=== PATIENT | female | born 1990 | race African-American/Black ===

== ENCOUNTER 2017-06-11 07:08 | Emergency (ER) | payer OTHER ==
[2017-06-11 08:16] LABS: HIV (1/2) Antibody/Antigen Non-Reactive (NonReactive); HIV 1/2 INDEX 0.13 S/CO (<1.00); Hep C IgG Ab Non-Reactive (NonReactive); Hep C Index 0.09 S/CO (0-0.79)
[2017-06-11 09:56] LABS: Hep B Surf AB Reactive (NonReactive)
[2017-06-11 10:00] LABS: HBSAB Concentration 56.93 mIU/mL
== END 2017-06-11 08:05 | disposition home or self-care (01) ==
LOC: ERS 07:08
DX: Z77.21 Contact with and (suspected) exposure to potentially hazardous body fluids (principal); J45.909 Unspecified asthma, uncomplicated; F41.9 Anxiety disorder, unspecified; Z79.899 Other long term (current) drug therapy
CPT/HCPCS: 36415; 86706; 86803; 87389; 99283

== ENCOUNTER 2017-06-14 10:56 | Emergency (ER) | payer OTHER | END 2017-06-14 13:02 | disposition home or self-care (01) | LOC: ERS 10:56 | DX: H60.11 Cellulitis of right external ear (principal); J45.909 Unspecified asthma, uncomplicated; F41.9 Anxiety disorder, unspecified | CPT/HCPCS: 99282 ==

== ENCOUNTER 2017-06-27 07:39 | Outpatient (CLI) | payer OTHER ==
--- NOTE | 2017-06-27 09:49 | ULT ---
ULTRASOUND ABDOMEN: HISTORY: Epigastric pain. COMPARISON: Gallbladder ultrasound 07/25/16. FINDINGS: Visualized portions of the aorta and IVC are unremarkable. Pancreas is not well seen. The hepatic echotexture appears unremarkable. The liver measures 15.8 cm in length. The portal vein is patent with antegrade flow. The common bile duct measures 4 mm. The gallbladder wall thickness is 2 mm. The right kidney measures 9.3 x 4 x 4.2 cm without mass, hydronephrosis, or abnormal calcifications. The left kidney measures 9.2 x 5.2 x 5.3 cm without mass, hydronephrosis, or abnormal calcifications . The spleen measures 8.5 x 3.4 x 3.1 cm. No cholelithiasis appreciated. Sonographic Pierre's sign negative. IMPRESSION: Unremarkable exam. POS: TPC
== END 2017-06-27 07:40 | disposition home or self-care (01) ==
LOC: ULT 07:39
PROVIDERS: ATTEND Family Medicine
DX: R10.13 Epigastric pain (principal)
CPT/HCPCS: 76700

== ENCOUNTER 2017-10-13 12:05 | Day surgery (SDC) | payer OTHER ==
[2017-10-12 15:38] VITALS: BMI 42.0
[~2017-10-13 12:05] MED LIST: Lidocaine 1% PF 5 ML VIAL ONE; PROPOFOL 200 MG/20 ML VIAL ONE
[2017-10-13 13:08] LABS: BHCG - Serum Negative (NEGATIVE); Pregs Control Background? CLEAR/WHITE (CLR/WHITE); Pregs Control Bar Appear? YES (CONTROL BAR)
--- NOTE | 2017-10-13 16:25 | OP ---
DATE OF PROCEDURE: 10/13/2017 TITLE OF PROCEDURE: Esophagogastroduodenoscopy with biopsy. PRE-PROCEDURE DIAGNOSES: 1. Intractable upper abdominal pain. 2. History of Helicobacter pylori infection, treated with resolution of infection. POSTOPERATIVE DIAGNOSES: 1. Examination to second portion of duodenum. 2. 1-2 scattered erosions at the GE junction, biopsied. 3. No evidence of erosive esophagitis or esophageal ulcer. 4. Mild patchy erythema of the gastric body and antrum, biopsied. 5. Grossly normal appearing duodenum, biopsied for histology. ANESTHESIA: Total intravenous anesthesia provided by Dr. Joe Thomas. PROCEDURE IN DETAIL: Written informed consent was obtained. The patient was brought to the endoscop y suite. Total intravenous anesthesia was provided. The patient was placed in the left lateral decu bitus position. A bite block was inserted into the mouth. A Pentax video therapeutic gastroscope wa s introduced into the oral cavity and the esophagus was carefully intubated. The gastroscope was adv anced under direct visualization to the second portion of the duodenum. Endoscopic findings revealed the Z-line at approximately 38 cm from the incisors. It was mildly irregular. A few small erosions not more than 2-3 mm in size were noted at the GE junction. Biopsies were obtained for histology. There was no evidence of erosive esophagitis or esophageal ulcer. No hiatal hernia was seen. The st omach was then entered and carefully examined. This included a retroflexed view of the cardia and fu ndus. Mild patchy erythema was noted in the gastric body and antrum and biopsies were obtained for h istology. No ulcer was seen. The duodenum from the bulb to the second portion was then examined and no ulcer or duodenitis was seen. Biopsies were obtained in the first and second portion of the duod enum for histology. The stomach was then decompressed as the endoscope was completely removed from t he patient. There were no immediate complications. She was transferred to the day-stay surgery area for post-procedure monitoring. RECOMMENDATIONS: 1. Await biopsy results. 2. Ask the patient to call me in 1 week for biopsy results. 3. Obtain gastric emptying scan in nuclear medicine in the next 1-2 weeks. 4. Follow up in the GI clinic on 11/03/2017. 5. We will initiate a trial of low-dose amitriptyline 10 mg p.o. at bedtime for the next 3-4 weeks.
== END 2017-10-13 14:16 | disposition home or self-care (01) ==
LOC: SDC 12:05
PROVIDERS: ATTEND Internal Medicine Gastroenterology
PROC: 0DB98ZX Excision of Duodenum, Via Natural or Artificial Opening Endoscopic, Diagnostic (ICD-10-PCS; principal; 2017-10-13)
PROC: 0DB78ZX Excision of Stomach, Pylorus, Via Natural or Artificial Opening Endoscopic, Diagnostic (ICD-10-PCS; principal; 2017-10-13)
PROC: 0DB48ZX Excision of Esophagogastric Junction, Via Natural or Artificial Opening Endoscopic, Diagnostic (ICD-10-PCS; principal; 2017-10-13)
DX: K31.9 Disease of stomach and duodenum, unspecified (principal); K20.9 Esophagitis, unspecified; K21.9 Gastro-esophageal reflux disease without esophagitis; E03.9 Hypothyroidism, unspecified; K58.9 Irritable bowel syndrome, unspecified; Z88.1 Allergy status to other antibiotic agents; Z79.899 Other long term (current) drug therapy
CPT/HCPCS: 36415; 84703; 88305; 88312; 88313; J2001; J2704

== ENCOUNTER 2017-11-22 03:35 | Emergency (ER) | payer OTHER ==
[2017-11-22 04:28] LABS: Anion Gap 14 mmol/L (10-20); BUN (Urea Nitrogen) 6 mg/dL (7.0-18.7); Calc. Creatinine Clearance 0 mL/min (70-130); Calcium 8.8 mg/dL (7.8-10.44); Carbon Dioxide 19 mmol/L (22-29); Chloride 108 mmol/L (98-107); Estimated GFR-MDRD Greater than 90; Glucose 104 mg/dL (70-105); Potassium 4.1 mmol/L (3.5-5.1); Sodium 137 mmol/L (136-145)
[2017-11-22 04:31] LABS: Band 1 % (5-11); Eosinophils 5 % (0-10); Hemoglobin 11.9 g/dL (12.0-16.0); Lymphocytes 48 % (21-51); MDiff Complete? YES; Mean Corpuscular HGB CONC 32.1 g/dL (32.0-36.0); Mean Corpuscular Hemoglobin 26.5 pg (27.0-31.0); Mean Corpuscular Volume 82.5 fL (78.0-98.0); Mean Platelet Volume 9.4 fL (7.4-10.4); Monocytes 6 % (0-10); Neutrophil 39 % (42-75); Platelet Count 214 thou/uL (130-400); RBC Distribution Width 12.6 % (11.5-14.5); Red Blood Cell (RBC) Count 4.48 mill/uL (4.20-5.40); White Blood Cell (WBC) Count 7.5 thou/uL (4.8-10.8)
[2017-11-22 04:33] LABS: Bilirubin Negative (Negative); Blood, Urine Moderate (Negative); Clarity Slightly Cloudy (Clear); Glucose, Urine (Dipstick) Negative (Negative); Leukocyte Negative (Negative); Nitrite Negative (Negative); Protein, Urine (Dipstick) 30 mg/dL (Neg-Trace); pH, Urine 5.5 (5.0-9.0)
[2017-11-22 04:35] LABS: Specific Gravity, Urine 1.027 (1.002-1.036)
[2017-11-22 04:44] LABS: Bacteria/HPF 3+ HPF (None Seen); RBC/HPF 0-3 HPF (0-3)
[2017-11-22 04:45] LABS: Hyaline Casts/LPF NONE SEEN LPF (0-3 Hyaline)
[2017-11-22 04:46] LABS: Sperm/HPF Rare HPF (None Seen)
--- NOTE | 2017-11-22 10:42 | ULT ---
PRELIMINARY REPORT/[facility]/EMERGENTY AFTER-HOURS PROCEDURE US First Trimester, Transabdominal US , Transvaginal CLINICAL HISTORY: 27 years old, female; Pain and signs and symptoms; Lmp or gestational age (in weeks): 7w1d; Antepartu m complications; Bleeding and other: N/v; complicated by abdominal or pelvic pain; Lower; F irst trimester; ; Patient HX: Vaginal spotting TECHNIQUE: Real-time transabdominal and transvaginal obstetrical ultrasound of the maternal pelvis and a first t rimester with image documentation. Transvaginal imaging was used for better evaluation of t he fetus and adnexa. COMPARISON: No relevant prior studies available. FINDINGS: Gestation: [place]-rump length measuring 6 mm corresponding to 6 weeks and 4 days gestation. hear t rate of 135 beats per minutes. Yolk sac measuring 4 mm. Gestational age by ultrasound is 7 weeks an d 1 day with an EDC of 07/10/2018. Clinical gestational age is 6 weeks and 5 days with an EDC of 07/13/2018. Small crow-gestational hemorrhage present. Placenta/amniotic fluid: Cannot be adequately evaluated due to the early gestational age. Uterus/cervix: Uterus measuring 8.7 x 4.7 x 6.7 cm. No myometrial mass. Ovaries: Left ovary measuring 2.4 x 2.9 x 2.7 cm. No mass. Free fluid: No free fluid. Other findings: LMP: 10/06/2017. Right ovary not visualized. IMPRESSION: 1. Single living intrauterine at 7 weeks and 1 day gestational age and EDC of 07/10/2018 by ultrasound. 2. Small crow-gestational hemorrhage. Thank you for allowing us to participate in the care of your patient. Dictated and Authenticated by: Frank Schultz MD 11/22/2017 6:00 AM Central Time ([place] & [place]) FINAL REPORT EMERGENT AFTER HOURS PELVIC ULTRASOUND: Technique: Multiplanar grayscale and color doppler images were obtained. FINDINGS/IMPRESSION: In the technique of the preliminary report it states that transvaginal imaging was performed. This wa s not performed. Spectral analysis of the doppler waveforms of the ovaries were performed. I agree with the findings and impression given in the preliminary report per [facility] physician. There is a gestational sac within the uterus containing a pole with crown-rump length of 0.67 cm. This equals 6 weeks 4 days. A heart rate was detected and yolk sac was identified. There is a small hypoechoic region adjacent to the gestational sac which may represent a small subchorionic hemorrhage . IMPRESSION: 1. Small subchorionic hemorrhage. 2. Single live intrauterine with estimated age of 6 weeks 4 days. 3. Please note that transvaginal imaging was not used on this examination. POS: OFF
[2017-11-22 20:17] LABS: Chlamydia by PCR Not Detected (NotDetected); GC by PCR Not Detected (NotDetected)
== END 2017-11-22 06:28 | disposition home or self-care (01) ==
LOC: SCSER 03:35
DX: O20.0 Threatened abortion (principal); O99.511 Diseases of the respiratory system complicating pregnancy, first trimester; J45.909 Unspecified asthma, uncomplicated; O99.611 Diseases of the digestive system complicating pregnancy, first trimester; K21.9 Gastro-esophageal reflux disease without esophagitis; K58.9 Irritable bowel syndrome, unspecified; O99.341 Other mental disorders complicating pregnancy, first trimester; F32.9 Major depressive disorder, single episode, unspecified; F41.9 Anxiety disorder, unspecified; Z79.899 Other long term (current) drug therapy; Z3A.01 Less than 8 weeks gestation of pregnancy
CPT/HCPCS: 76856; 80048; 81003; 81015; 84702; 85025; 86900; 86901; 87480; 87491; 87510; 87591; 87660; 93976

== ENCOUNTER 2018-04-25 21:34 | Day surgery (SDC) | payer OTHER ==
[2018-04-25 22:00] VITALS: BP 135/81; TEMP 98.4; BMI 43.5
[2018-04-25 22:41] LABS: #Basophils 0.1 thou/uL (0.0-0.2); #Eosinphils 0.4 thou/uL (0.0-0.7); #Lymphocytes 2.5 thou/uL (1.20-3.40); #Monocytes 0.9 thou/uL (0.11-0.59); #Neutrophils 8.6 thou/uL (1.40-6.50); %Basophils 0.5 % (0.0-1.0); %Lymphocytes 20.5 % (21.0-51.0); %Monocytes 7.2 % (0.0-10.0); %Neutrophils 68.9 % (42.0-75.0); Hemoglobin 11.7 g/dL (12.0-16.0); Mean Corpuscular HGB CONC 32.9 g/dL (32.0-36.0); Mean Corpuscular Hemoglobin 28.5 pg (27.0-31.0); Mean Corpuscular Volume 86.6 fL (78.0-98.0); Mean Platelet Volume 7.7 fL (7.4-10.4); Platelet Count 207 thou/uL (130-400); RBC Distribution Width 12.8 % (11.5-14.5); Red Blood Cell (RBC) Count 4.11 mill/uL (4.20-5.40); White Blood Cell (WBC) Count 12.4 thou/uL (4.8-10.8)
[2018-04-25 23:01] LABS: ALT (SGPT) 12 U/L (8-55); AST (SGOT) 12 U/L (5-34); Albumin 3.4 g/dL (3.5-5.0); Alkaline Phosphatase 69 U/L (40-150); Anion Gap 13 mmol/L (10-20); BUN (Urea Nitrogen) 5 mg/dL (7.0-18.7); Bilirubin, Total 0.5 mg/dL (0.2-1.2); Calc. Creatinine Clearance 202 mL/min (70-130); Calcium 8.9 mg/dL (7.8-10.44); Carbon Dioxide 19 mmol/L (22-29); Chloride 108 mmol/L (98-107); Estimated GFR-MDRD Greater than 90; Globulin 3.2 g/dL (2.4-3.5); Glucose 72 mg/dL (70-105); Potassium 3.6 mmol/L (3.5-5.1); Protein, Total 6.6 g/dL (6.0-8.3); Sodium 136 mmol/L (136-145)
[2018-04-25 23:10] LABS: Bilirubin Negative (Negative); Blood, Urine Negative (Negative); Clarity CLEAR (Clear); Glucose, Urine (Dipstick) Negative (Negative); Leukocyte Negative (Negative); Nitrite Negative (Negative); Protein, Urine (Dipstick) Negative (Neg-Trace); Specific Gravity, Urine 1.011 (1.002-1.036); Urobilinogen 0.2 mg/dL (0.2-1.0); pH, Urine 6.5 (5.0-9.0)
[2018-04-26 00:24] LABS: FFN Internal QC Analyzer PASS (PASS); FFN Internal QC Cassette PASS (PASS); Fetal Fibronectin Negative (Negative)
[2018-04-26] MEDS ORDERED: Zolpidem Tartrate 5 MG TAB PO PRN (00:57)
[2018-04-26] MEDS ORDERED: Lactated Ringer's 1,000 ML IV SCH ×2 (01:00)
--- NOTE | 2018-04-26 11:25 | PRG ---
DATE OF SERVICE: 04/26/2018 PRIMARY OB: Savannah Llamas MD CHIEF COMPLAINT: Abdominal pain and cough. HISTORY OF PRESENT ILLNESS: The patient is a 28-year-old G1, P0 female with an intrauterine at 28 weeks and 6 days, who presented yesterday with abdominal pain and upper respiratory infection including cough. After being evaluated by Dr. Hogan, the on-call [employer] hospitalist, the patient was noted to have negative fibronectin and no evidence of urinary tract infection, and a closed cervix with no evidence of labor. The patient was IV hydrated and treated overnight with plans for her primary OB, Dr. Savannah Llamas, to see her in the morning and continue management. Unfortunately, Dr. Llamas became tied up with surgery, as I was asked to followup on her evaluation. The patient reports that she has been having pain since yesterday morning in her abdomen, worse with activity and movement, but also report that it feels like menstrual cramps. The patient also reports she has had a cough for 2 or 3 days and upper respiratory infection since last Tuesday. She works as a CCU nurse here at the hospital. The patient reports that she is comfortable discharging home, as there is no evidence of labor or infection at this time or urinary tract infection at this time. The patient reports that she was scheduled to go into work this morning at 7 o'clock. OBJECTIVE: VITAL SIGNS: Most recent blood pressure 135/81, heart rate of 82, saturating 100% on room air. ABDOMEN: Gravid and soft. She does have some tenderness to the lower abdomen and pelvis with deviation of the uterus. heart tracing shows the fetus is baseline in the 150s with moderate long-term variability, positive acceleration, no deceleration, and no evidence of contractions on the monitor. ASSESSMENT AND PLAN: This patient is being discharged to home. There is no evidence of labor. Her fetus has a category 1 tracing. She will be discharged with Tylenol No. 3 #10 for cough and abdominal pain and a work excuse for today and tomorrow, as she does work with already sick patients and with her excessive cough, it would not be a good idea for her continue to work at this time. She has also been given instructions to follow with her primary OB Dr. Savannah Llamas, with a phone call today to make an ER followup appointment. Job ID: [id number]
== END 2018-04-26 09:30 | disposition home or self-care (01) ==
LOC: L&D/OP 21:34
PROVIDERS: ATTEND Obstetrics & Gynecology
DX: O99.89 Other specified diseases and conditions complicating pregnancy, childbirth and the puerperium (principal); R10.9 Unspecified abdominal pain; Z3A.28 28 weeks gestation of pregnancy
CPT/HCPCS: 36415; 80053; 81003; 82731; 85025; 96360; 96361; 99283

== ENCOUNTER 2018-07-06 20:53 | Inpatient (IN) | payer OTHER ==
[2018-07-06] MEDS ORDERED: NS w/ Oxytocin 10 units 500 ML IV SCH (20:56)
[2018-07-06] MEDS ORDERED: Lidocaine 1% (PF) 30 ML VIAL SC PRN (20:56)
[2018-07-06] MEDS ORDERED: Acetaminophen 500 MG TAB PO PRN (20:56)
[2018-07-06] MEDS ORDERED: Ondansetron PF 4 MG/2 ML Vial IVP PRN (20:56)
[2018-07-06] MEDS ORDERED: Docusate 100 MG CAP PO PRN (20:56)
[2018-07-06] MEDS ORDERED: NS / Oxytocin 40 units/1000ml 1,000 ML IV PRN (20:56)
[2018-07-06] MEDS ORDERED: Promethazine HCl 25 MG/ML VIAL IM PRN (20:56)
[2018-07-06] MEDS ORDERED: Zolpidem Tartrate 5 MG TAB PO PRN (20:56)
[2018-07-06] MEDS ORDERED: Ibuprofen 800 MG TAB PO PRN (20:56)
[2018-07-06] MEDS ORDERED: Butorphanol Tartrate 1 MG/ML VIAL SLOW IVP PRN (20:56)
[2018-07-06] MEDS ORDERED: Misoprostol 200 MCG TAB PR PRN (20:56)
[2018-07-06] MEDS ORDERED: HYDROcodone/Acetaminophen 5/325 mg Tablet PO PRN ×2 (20:56)
[2018-07-06] MEDS ORDERED: Penicillin G Potassium 5 MILL.UNITS in Sodium Chloride 0.9% 100 ML IVPB SCH (21:00)
[2018-07-06 21:33] VITALS: BMI 45.1
[2018-07-06] MEDS: Lactated Ringer's 1,000 ML IV SCH (22:00)
[2018-07-06] MEDS: Misoprostol 100 MCG TAB VAG SCH (22:15)
[2018-07-06 22:45] LABS: Mean Corpuscular HGB CONC 32.8 g/dL (32.0-36.0); Mean Corpuscular Hemoglobin 28.4 pg (27.0-31.0); Mean Corpuscular Volume 86.6 fL (78.0-98.0); Mean Platelet Volume 8.7 fL (7.4-10.4); Platelet Count 212 thou/uL (130-400); RBC Distribution Width 13.2 % (11.5-14.5); Red Blood Cell (RBC) Count 4.22 mill/uL (4.20-5.40); White Blood Cell (WBC) Count 8.9 thou/uL (4.8-10.8)
[2018-07-06 23:20] LABS: HBSAg Index 0.16 S/CO (0-0.99); Hep B Surf Ag Non-Reactive S/CO (NonReactive); Syphilis Antibody Nonreactive (Nonreactive); Syphilis Antibody Index 0.03 S/CO (<1.00 Non-Reactive)
[2018-07-07] MEDS: Misoprostol 100 MCG TAB VAG SCH ×3 (01:00→10:27)
[2018-07-07] MEDS ORDERED: Fentanyl 4 mcg/Bup 0.1% Cadd 100 ML ONE ×3 (05:43→23:39)
[2018-07-07] MEDS: Fentanyl 4 mcg/Bupivacaine 0.1% Cassette 100 ML EPIDURAL SCH ×3 (06:30→23:40)
[2018-07-07] MEDS ORDERED: ePHEDrine/0.9% NaCl/PF SYRINGE 50 mg/10 ml SLOW IVP PRN (06:34)
[2018-07-07] MEDS ORDERED: Eucerin (Mineral Oil/Petrolatum,White) 30 gm Jar TOP PRN (06:34)
[2018-07-07] MEDS ORDERED: Ondansetron PF 4 MG/2 ML Vial IVP PRN (06:34)
[2018-07-07] MEDS ORDERED: Lactated Ringer's 500 ML IV PRN (06:34)
[2018-07-07] MEDS ORDERED: Promethazine HCl 25 MG/ML VIAL IM PRN (06:34)
[2018-07-07] MEDS ORDERED: Naloxone HCl 0.4 mg/ml Vial IVP PRN ×2 (06:34)
[2018-07-07] MEDS ORDERED: diphenhydrAMINE 50 MG/ML VIAL IVP PRN (06:34)
[2018-07-07] MEDS ORDERED: Communication Order-Pharmacy FS SCH (06:45)
[2018-07-07] MEDS: NS w/ Oxytocin 10 units 500 ML IV SCH ×2 (08:40→19:55)
[2018-07-07] MEDS: Lactated Ringer's 1,000 ML IV SCH ×2 (10:26→15:42)
[2018-07-07] MEDS: Penicillin G 2.5 MILL.units 2.5 MILL.UNITS in Premix Bag 1 BAG IVPB SCH ×3 (11:42→19:55)
[2018-07-07] MEDS: Acetaminophen 325 MG TAB PO PRN (21:03)
[2018-07-08] MEDS: Lactated Ringer's 1,000 ML IV SCH ×2 (00:07→18:04)
[2018-07-08] MEDS: Penicillin G 2.5 MILL.units 2.5 MILL.UNITS in Premix Bag 1 BAG IVPB SCH ×6 (00:07→21:32)
[2018-07-08] MEDS: Acetaminophen 325 MG TAB PO PRN (02:34)
[2018-07-08] MEDS ORDERED: Ondansetron PF 4 MG/2 ML Vial ONE ×3 (04:43→16:13)
[2018-07-08] MEDS: Misoprostol 100 MCG TAB VAG SCH ×4 (04:49→15:31)
[2018-07-08] MEDS ORDERED: Ondansetron PF 4 MG/2 ML Vial SLOW IVP PRN (04:59)
[2018-07-08] MEDS ORDERED: Fentanyl 4 mcg/Bup 0.1% Cadd 100 ML ONE (05:57)
[2018-07-08] MEDS: Fentanyl 4 mcg/Bupivacaine 0.1% Cassette 100 ML EPIDURAL SCH (07:00)
[2018-07-08] MEDS ORDERED: Bicitra 30 ML UDCUP ONE (07:30)
[2018-07-08] MEDS ORDERED: CEFAZOLIN 2 GM/50 ML BAG ONE (07:30)
[2018-07-08] MEDS ORDERED: Dexamethasone 4 mg/ml Vial ONE (08:00)
[2018-07-08] MEDS ORDERED: Ketorolac Tromethamine 30 MG/ML VIAL ONE ×2 (08:00→16:13)
[2018-07-08] MEDS ORDERED: Lidocaine 2% 10 ML INJ ONE (08:00)
[2018-07-08] MEDS ORDERED: Bupivacaine 0.25% HCL 30 ML VIAL ONE (08:00)
[2018-07-08] MEDS ORDERED: Oxytocin 10 UNITS/ML VIAL ONE ×2 (08:00→08:01)
[2018-07-08] MEDS ORDERED: diphenhydrAMINE 50 MG/ML VIAL ONE ×2 (08:01→16:13)
[2018-07-08] MEDS ORDERED: MORPHINE 5 MG/10 ML PF VIAL ONE (08:01)
[2018-07-08] MEDS ORDERED: Midazolam HCl 2 mg/2 ml Vial ONE (08:42)
[2018-07-08] MEDS ORDERED: Ondansetron HCl/PF 4 MG/2 ML Vial IVP PRN (09:39)
[2018-07-08] MEDS ORDERED: diphenhydrAMINE 50 MG/ML VIAL IVP PRN (09:39)
[2018-07-08] MEDS ORDERED: Eucerin (Mineral Oil/Petrolatum,White) 30 gm Jar TOP PRN (09:39)
[2018-07-08] MEDS ORDERED: Meperidine HCl/PF 25 MG/ML VIAL SLOW IVP PRN (09:39)
[2018-07-08] MEDS ORDERED: Ketorolac Tromethamine 30 MG/ML VIAL IVP PRN (09:39)
[2018-07-08] MEDS ORDERED: Naloxone HCl 0.4 mg/ml Vial IV PRN (09:39)
[2018-07-08] MEDS ORDERED: Ondansetron PF 4 MG/2 ML Vial IVP PRN ×2 (09:39→10:04)
[2018-07-08] MEDS ORDERED: Promethazine HCl 25 MG/ML VIAL IM PRN (09:39)
[2018-07-08] MEDS ORDERED: L&D-Morphine 4 MG/ML VIAL SLOW IVP PRN (09:39)
[2018-07-08] MEDS ORDERED: Promethazine HCl 25 MG SUPP PR PRN (09:39)
[2018-07-08] MEDS ORDERED: HYDROmorphone 2 MG/ML VIAL SLOW IVP PRN (09:39)
[2018-07-08] MEDS ORDERED: Naloxone HCl 0.4 mg/ml Vial IVP PRN ×2 (09:39)
[2018-07-08] MEDS ORDERED: Communication Order-Pharmacy FS SCH (09:45)
[2018-07-08] MEDS ORDERED: Zolpidem Tartrate 5 MG TAB PO PRN ×2 (10:04→18:13)
[2018-07-08] MEDS ORDERED: Bisacodyl 10 MG SUPP PR PRN (10:04)
[2018-07-08] MEDS ORDERED: Misoprostol 200 MCG TAB PR PRN (10:04)
[2018-07-08] MEDS ORDERED: Meperidine HCl/PF 25 MG/ML VIAL IM PRN (10:04)
[2018-07-08] MEDS ORDERED: Acetaminophen 325 MG TAB PO PRN (10:04)
[2018-07-08] MEDS ORDERED: Lanolin Ointment 7 GM TUBE TOP PRN (10:04)
[2018-07-08] MEDS ORDERED: Adacel (T-DAP) 0.5 ML SYRINGE IM ONE (10:04)
[2018-07-08] MEDS ORDERED: Misoprostol 200 MCG TAB ONE ×2 (10:08)
[2018-07-08] MEDS ORDERED: NS / Oxytocin 40 units/1000ml 1,000 ML IV SCH (10:15)
[2018-07-08] MEDS ORDERED: Lactated Ringer's 1,000 ML IV SCH (10:15)
[2018-07-08 10:48] LABS: Hemoglobin 7.8 g/dL (12.0-16.0); Mean Corpuscular HGB CONC 28.8 g/dL (32.0-36.0); Mean Corpuscular Hemoglobin 26.9 pg (27.0-31.0); Mean Corpuscular Volume 93.5 fL (78.0-98.0); Mean Platelet Volume 8.3 fL (7.4-10.4); Platelet Count 128 thou/uL (130-400); RBC Distribution Width 13.2 % (11.5-14.5); Red Blood Cell (RBC) Count 2.88 mill/uL (4.20-5.40); White Blood Cell (WBC) Count 10.1 thou/uL (4.8-10.8)
[2018-07-08] MEDS ORDERED: Dexamethasone 20 MG/5 ML VIAL ONE (16:13)
[2018-07-08] MEDS: Simethicone Chewable 80 MG TAB PO PRN (21:02)
[2018-07-08] MEDS: Ferrous Sulfate 325 MG TAB PO SCH (21:02)
[2018-07-08] MEDS: Docusate Calcium (SURFAK) 240 MG CAP PO SCH (21:02)
[2018-07-08] MEDS: Acetaminophen/Codeine 30-300mg Tablet PO PRN (22:48)
[2018-07-08] MEDS: diphenhydrAMINE 25 MG CAP PO PRN (22:48)
[2018-07-09] MEDS: Acetaminophen/Codeine 30-300mg Tablet PO PRN ×4 (05:34→21:38)
[2018-07-09] MEDS: Ibuprofen 800 MG TAB PO SCH ×3 (05:34→21:38)
[2018-07-09 06:17] LABS: Hemoglobin 8.5 g/dL (12.0-16.0); Mean Corpuscular Volume 88.1 fL (78.0-98.0); Mean Platelet Volume 8.3 fL (7.4-10.4); Platelet Count 157 thou/uL (130-400); RBC Distribution Width 13.3 % (11.5-14.5); Red Blood Cell (RBC) Count 2.92 mill/uL (4.20-5.40); White Blood Cell (WBC) Count 20.7 thou/uL (4.8-10.8)
[2018-07-09] MEDS: Prenatal Vitamin 1 TAB PO SCH (09:29)
[2018-07-09] MEDS: Ferrous Sulfate 325 MG TAB PO SCH ×2 (09:30→17:12)
[2018-07-09] MEDS: Docusate Calcium (SURFAK) 240 MG CAP PO SCH ×2 (09:30→21:38)
[2018-07-09] MEDS ORDERED: Bupivacaine HCl 0.5%/Epinephrine 1:200,000/PF 30 ml Vial ONE (11:11)
[2018-07-09] MEDS ORDERED: Lidocaine 2% MPF 10 ML AMP (For Epidural Use) ONE (11:11)
[2018-07-09] MEDS ORDERED: Ibuprofen 800 MG TAB PO SCH (14:00)
[2018-07-09] MEDS: Simethicone Chewable 80 MG TAB PO PRN (17:13)
[2018-07-10] MEDS: Acetaminophen/Codeine 30-300mg Tablet PO PRN ×4 (01:57→21:56)
[2018-07-10] MEDS: Ibuprofen 800 MG TAB PO SCH ×3 (06:11→21:56)
[2018-07-10] MEDS: Docusate Calcium (SURFAK) 240 MG CAP PO SCH ×2 (09:37→21:56)
[2018-07-10] MEDS: Prenatal Vitamin 1 TAB PO SCH (09:37)
[2018-07-10] MEDS: Ferrous Sulfate 325 MG TAB PO SCH ×2 (09:37→17:07)
--- NOTE | 2018-07-10 10:57 | OP ---
DATE OF PROCEDURE: 07/08/2018 RESIDENT SURGEON: Jaskaran Sahu MD PREOPERATIVE DIAGNOSES: 1. Term intrauterine at 39 and 2/7 weeks. 2. Failure to progress. 3. Arrest of descent dilatation. POSTOPERATIVE DIAGNOSES: 1. Term intrauterine at 39 and 2/7 weeks. 2. Failure to progress. 3. Arrest of descent dilatation. 4. Cephalopelvic disproportion. PROCEDURE PERFORMED: Primary low-transverse section. ANESTHESIA: Epidural catheterization. FINDINGS: 1. Arrest of descent and dilatation at 5 cm, 90% effacement, and -1 station. 2. Vigorous male , 6 pounds 1 ounce, Apgars 8 and 9. 3. Normal uterus, tubes, and ovaries. 4. Cephalopelvic disproportion-narrow outlet, prominent sacrum, android pelvis. COMPLICATIONS: None. SPECIMENS REMOVED: Cord blood. BLOOD LOSS: 900 mL. DESCRIPTION OF PROCEDURE: After thorough consent and counseling, Ms. Martinez was taken to the operating room, and an adequate level of anesthesia was obtained via existing epidural. The patient was prepped and draped in usual sterile fashion for abdominal surgery. A Sterling had previously been placed in the bladder, which was noted to be draining clear urine. Attention was then turned to performing the primary low-transverse section. A Pfannenstiel incision was made and carried sharply to the fascia, which was also sharply incised. The rectus muscles were identified, and retracted laterally. The abdominal peritoneal cavity was entered with the usual safeguards carried out. A retractor was placed and a bladder flap was created on the vesicouterine peritoneum. It was noted that the pelvis and rectus abdominis muscles were extremely tight and constricted. A bladder flap was created on the vesicouterine peritoneum. A low transverse incision was made on the well developed lower uterine segment. Upon entering the amniotic sac, a small amount of clear amniotic fluid was visualized. The infant was noted to be vertex presentation still high in the pelvis. Significant caput and moulding were appreciated. An attempt was made to deliver the baby through the incision manually without success. A vacuum was then applied to the vertex, which was elevated out of pelvis. With vacuum-assisted delivery, the vertex was delivered and a tight nuchal cord was reduced. Baby was bulb suctioned on the abdomen. Shoulders and body were then delivered in an atraumatic fashion. The cord was doubly clamped and cut, and the was handed to the Neonatology Team in attendance for the delivery. The was a vigorous viable male weighing 6 pounds 1 ounce with Apgars of 8 and 9 obtained at one and five minutes respectively. Cord blood was obtained. The placenta was manually removed from the uterus. The uterine cavity was cleared of any remaining clot and fluid. The low-transverse incision was then closed with a running locking ligature of #1 chromic. A second imbricating layer was placed to facilitate strength and hemostasis. Several [id number] ligatures were required to facilitate hemostasis as well. As noted above, the pelvis was extremely tight and constricted. There was an extremely prominent sacrum with an android pelvis. The incision was inspected and noted to be hemostatic. The vesicouterine peritoneum was closed with running ligature of 3-0 Monocryl suture. The posterior cul-de-sac and gutters were cleared of clot and fluid. The uterus was returned to the abdomen. Good tone and hemostasis were inspected. Seprafilm was applied to the low-transverse incision and to the anterior aspect of the uterus before the uterus was placed back in the abdomen. Incision was inspected and hemostatic. Uterus, fallopian tubes, and ovaries were normal. No pathology identified. Lap, sponge, and needle counts were correct. The peritoneum was then closed with a running ligature of 2-0 Vicryl. The rectus muscles were reapproximated in the midline with interrupted ligatures of 2-0 Vicryl and #1 chromic suture. The fascia was then closed with 2 ligatures of 0 Vicryl suture, which were tied in the midline. Good fascial integrity was appreciated. The incision was irrigated with copious amount of warm normal saline. Hemostasis was obtained with Bovie cauterization. The subcutaneous was then closed with interrupted ligatures of 2-0 plain. The skin was closed with a subcuticular stitch of 4-0 Monocryl and dressed with Dermabond. A pressure dressing and ice packs were subsequently placed. Lap, sponge, and needle counts were correct x3. Estimated blood loss in the surgical procedure was felt to be 900 mL. QBL pending. The patient was taken to the recovery room in good condition. Immediately following the surgery, the patient and family were made aware of the surgical procedure and operative findings. Questions were answered to their satisfaction. Mother and baby were doing well postoperatively. They were appreciative of the care rendered here at [facility] during her stay here. Job ID: [id number]
[2018-07-11] MEDS: Ibuprofen 800 MG TAB PO SCH ×3 (05:57→21:59)
[2018-07-11] MEDS: Docusate Calcium (SURFAK) 240 MG CAP PO SCH ×2 (08:51→21:59)
[2018-07-11] MEDS: Ferrous Sulfate 325 MG TAB PO SCH ×2 (08:51→18:04)
[2018-07-11] MEDS: diphenhydrAMINE 25 MG CAP PO PRN (08:51)
[2018-07-11] MEDS: Prenatal Vitamin 1 TAB PO SCH (08:51)
[2018-07-11] MEDS: traMADol HCl 50 MG TAB PO PRN (16:51)
[2018-07-12] MEDS: traMADol HCl 50 MG TAB PO PRN (03:25)
[2018-07-12] MEDS: Ibuprofen 800 MG TAB PO SCH (06:12)
[2018-07-12 08:49] VITALS: BP 132/66; TEMP 97.6
[2018-07-12] MEDS: Prenatal Vitamin 1 TAB PO SCH (08:50)
[2018-07-12] MEDS: Docusate Calcium (SURFAK) 240 MG CAP PO SCH (08:50)
[2018-07-12] MEDS: Ferrous Sulfate 325 MG TAB PO SCH (08:50)
== END 2018-07-12 12:40 | disposition home or self-care (01) | DRG 788 ==
LOC: L&D 20:53 → 3SW 07-08 12:27
PROVIDERS: ADMIT Obstetrics & Gynecology; ATTEND Obstetrics & Gynecology
PROC: 10D00Z1 Extraction of Products of Conception, Low, Open Approach (ICD-10-PCS; principal; 2018-07-06)
DX: O32.4XX0 Maternal care for high head at term, not applicable or unspecified (principal); Z3A.39 39 weeks gestation of pregnancy; Z37.0 Single live birth; O33.9 Maternal care for disproportion, unspecified; O99.824 Streptococcus B carrier state complicating childbirth
CPT/HCPCS: 36415; 51702; 85027; 86780; 86850; 86900; 86901; 87340; J0670; J1100; J1200; J1885; J2001; J2250; J2270; J2405; J2540; J2590; J7050; Q0163; S0020

== ENCOUNTER 2018-10-01 06:04 | Emergency (ER) | payer OTHER ==
[2018-10-01 07:24] LABS: HIV (1/2) Antibody/Antigen Non-Reactive (NonReactive); HIV 1/2 INDEX 0.18 S/CO (<1.00); Hep C IgG Ab Non-Reactive (NonReactive); Hep C Index 0.05 S/CO (0-0.79)
[2018-10-01 08:25] LABS: Hep B Surf AB Reactive (NonReactive)
[2018-10-01 08:26] LABS: HBSAB Concentration 58.21 mIU/mL
== END 2018-10-01 06:55 | disposition home or self-care (01) ==
LOC: ERS 06:04
DX: Z77.21 Contact with and (suspected) exposure to potentially hazardous body fluids (principal); K21.9 Gastro-esophageal reflux disease without esophagitis; F32.9 Major depressive disorder, single episode, unspecified; F41.9 Anxiety disorder, unspecified; J45.909 Unspecified asthma, uncomplicated; Z79.01 Long term (current) use of anticoagulants; Z79.899 Other long term (current) drug therapy
CPT/HCPCS: 36415; 86706; 86803; 87389; 99283

== ENCOUNTER 2018-10-06 15:03 | Emergency (ER) | payer OTHER ==
[~2018-10-06 15:03] MED LIST changes: +ISOVUE-370 76%-LOCM 1 ML ONE; -Lidocaine 1% PF 5 ML VIAL ONE; -PROPOFOL 200 MG/20 ML VIAL ONE
[2018-10-06 16:37] LABS: BHCG - Serum Negative (NEGATIVE); Pregs Control Background? CLEAR/WHITE (CLR/WHITE); Pregs Control Bar Appear? YES (CONTROL BAR)
--- NOTE | 2018-10-06 17:16 | CT ---
Exam: CT angiogram of the chest HISTORY: Chest pain, onset one week ago. COMPARISON: 07/23/2016 TECHNIQUE: CT angiogram of the chest is performed in the axial plane. Three-dimensional reformatted i mages are submitted for interpretation FINDINGS: Mediastinum: No mass, lymphadenopathy or hematoma. HEART: Normal size. No significant pericardial fluid. Aorta: No aneurysm or dissection Upper solid abdominal viscera: No abnormality enhancement. Trachea and central bronchi: Patent Pleural spaces: No effusion Lung parenchyma: No masses or consolidation. Pneumothorax: None Osseous structures: No lytic or blastic lesions Pulmonary arteries: Adequate contrast opacification pulmonary arterial system to the level of segment al arteries. No filling defect to suggest pulmonary embolism IMPRESSION:No evidence of pulmonary artery embolism to the level of the segmental arteries.
[2018-10-06] MEDS ORDERED: Ketorolac Tromethamine 30 MG/ML VIAL ONE (17:33)
== END 2018-10-06 17:43 | disposition home or self-care (01) ==
LOC: ERS 15:03
DX: R07.9 Chest pain, unspecified (principal); E03.9 Hypothyroidism, unspecified; K21.9 Gastro-esophageal reflux disease without esophagitis; J45.909 Unspecified asthma, uncomplicated; F41.9 Anxiety disorder, unspecified; F32.9 Major depressive disorder, single episode, unspecified; Z79.01 Long term (current) use of anticoagulants; Z79.899 Other long term (current) drug therapy
CPT/HCPCS: 36415; 71275; 80053; 84443; 84484; 84703; 85025; 85379; 93005; 96361; 96374; J1885; Q9966

== ENCOUNTER 2019-11-23 11:30 | Outpatient (CLI) | payer OTHER | END 2019-11-23 11:31 | disposition home or self-care (01) | LOC: DTY/OP 11:30 | PROVIDERS: ATTEND Surgery | DX: E66.01 Morbid (severe) obesity due to excess calories (principal) | CPT/HCPCS: 97802 ==

== ENCOUNTER 2019-12-21 07:37 | Outpatient (CLI) | payer OTHER | END 2019-12-21 07:38 | disposition home or self-care (01) | LOC: DTY/OP 07:37 | PROVIDERS: ATTEND Surgery | DX: E66.01 Morbid (severe) obesity due to excess calories (principal) | CPT/HCPCS: 97802 ==

== ENCOUNTER 2020-01-25 09:21 | Outpatient (CLI) | payer OTHER | END 2020-01-25 09:22 | disposition home or self-care (01) | LOC: DTY/OP 09:21 | PROVIDERS: ATTEND Surgery | DX: E66.01 Morbid (severe) obesity due to excess calories (principal) | CPT/HCPCS: 97802 ==

== ENCOUNTER 2020-04-07 07:08 | Outpatient (CLI) | payer OTHER ==
--- NOTE | 2020-04-07 10:09 | RAD ---
XR Chest Pa Lat STANDARD HISTORY: Preop evaluation COMPARISON: 08/13/2016 FINDINGS: The heart size is normal. The lungs are well expanded without focal areas of consolidation, pneumothorax or pleural effusions. IMPRESSION: No radiographic evidence of acute cardiopulmonary process.
[2020-04-07 10:12] LABS: #Basophils 0.1 10x3/uL (0.0-0.2); #Eosinphils 0.3 10x3/uL (0.0-0.5); #Monocytes 0.4 10x3/uL (0.0-1.1); #Neutrophils 1.8 10x3/uL (1.5-8.4); %Basophils 1.7 % (0.0-2.0); %Eosinophils 4.5 % (0.0-6.0); %Lymphocytes 59.7 % (18.0-47.0); %Monocytes 6.4 % (0.0-10.0); %Neutrophils 27.4 % (40.0-75.0); Hemoglobin 12.1 g/dL (12.0-16.0); Mean Corpuscular HGB CONC 32.2 G/DL (32.0-36.0); Mean Corpuscular Volume 83.9 fl (80.0-100.0); Mean Platelet Volume 10.4 fl (7.4-10.4); Platelet Count 287 10x3/uL (130-400); RBC Distribution Width 13.7 % (11.5-14.5); Red Blood Cell (RBC) Count 4.48 10x6/uL (3.90-5.20); White Blood Cell (WBC) Count 6.4 10x3/uL (4.5-11.0)
[2020-04-07 10:30] LABS: BHCG - Serum Negative (NEGATIVE); Pregs Control Background? CLEAR/WHITE (CLR/WHITE); Pregs Control Bar Appear? YES (CONTROL BAR)
[2020-04-07 11:17] LABS: ALT (SGPT) 14 U/L (8-55); AST (SGOT) 15 U/L (5-34); Albumin 4.3 g/dL (3.5-5.0); Alkaline Phosphatase 37 U/L (40-110); Anion Gap 15 mmol/L (10-20); BUN (Urea Nitrogen) 13 mg/dL (7.0-18.7); Bilirubin, Total 0.6 mg/dL (0.2-1.2); Calc. Creatinine Clearance 0 mL/min (70-130); Calcium 9.1 mg/dL (7.8-10.44); Carbon Dioxide 23 mmol/L (22-29); Chloride 104 mmol/L (98-107); Estimated GFR-MDRD Greater than 90; Globulin 2.8 g/dL (2.4-3.5); Glucose 85 mg/dL (70-105); Potassium 4.2 mmol/L (3.5-5.1); Protein, Total 7.1 g/dL (6.0-8.3); Sodium 138 mmol/L (136-145)
[2020-04-07 14:21] LABS: Hemoglobin A1c 5.2 % (4.0-6.0)
[2020-04-08 15:35] LABS: SARS-CoV-2 MS2 Positive; SARS-CoV-2 N Gene Negative; SARS-CoV-2 S Gene Negative; SARS-CoV-2 by NAA Not Detected (NotDetected); SARS-CoV-2 orf1ab Negative
== END 2020-04-07 07:09 | disposition home or self-care (01) ==
LOC: LABBT 07:08
PROVIDERS: ATTEND Surgery
DX: Z01.818 Encounter for other preprocedural examination (principal); Z20.828 Contact with and (suspected) exposure to other viral communicable diseases; E66.01 Morbid (severe) obesity due to excess calories
CPT/HCPCS: 71046; 80053; 83036; 84703; 85025; 87635; 93005; 93010; U0003

== ENCOUNTER 2020-04-07 11:15 | Inpatient (IN) | payer OTHER ==
[2020-04-09 10:14] VITALS: BMI 40.0
[2020-04-10] MEDS ORDERED: Ondansetron PF 4 MG/2 ML Vial ONE ×2 (09:09→13:37)
[2020-04-10] MEDS ORDERED: Lidocaine 1% PF 5 ML VIAL ONE (09:09)
[2020-04-10] MEDS ORDERED: PROPOFOL 200 MG/20 ML VIAL ONE (09:09)
[2020-04-10] MEDS ORDERED: Glycopyrrolate 0.2 MG/ML 5 ML SYRINGE ONE (09:09)
[2020-04-10] MEDS ORDERED: Dexamethasone 20 MG/5 ML VIAL ONE (09:09)
[2020-04-10] MEDS ORDERED: Ketorolac Tromethamine 30 MG/ML VIAL ONE (09:09)
[2020-04-10] MEDS ORDERED: Rocuronium Bromide 10 MG/ML (10ML VIAL) ONE (09:09)
[2020-04-10] MEDS ORDERED: Heparin 5,000 UNITS/ML VIAL ONE (09:15)
[2020-04-10] MEDS ORDERED: Bupivacaine 0.25% HCL 30 ML VIAL ONE (10:42)
[2020-04-10] MEDS ORDERED: Lidocaine 1% w/Epinephrine 1:100K 20 ML VIAL ONE (10:42)
[2020-04-10] MEDS ORDERED: Fentanyl 250 MCG/5 ML VIAL ONE (10:44)
[2020-04-10] MEDS ORDERED: SUGAMMADEX SODIUM 200 MG/2 ML VIAL ONE (10:44)
[2020-04-10] MEDS ORDERED: Midazolam HCl 2 mg/2 ml Vial ONE (12:03)
[2020-04-10] MEDS ORDERED: HYDROmorphone 2 MG/ML VIAL SLOW IVP PRN (13:22)
[2020-04-10] MEDS ORDERED: Ondansetron HCl/PF 4 MG/2 ML Vial IVP PRN (13:22)
[2020-04-10] MEDS ORDERED: Promethazine HCl 25 MG/ML VIAL IM PRN ×2 (13:22→13:34)
[2020-04-10] MEDS ORDERED: Promethazine HCl 25 MG/ML VIAL SLOW IVP PRN (13:22)
[2020-04-10] MEDS ORDERED: diphenhydrAMINE 50 MG/ML VIAL IVP PRN ×2 (13:34→13:51)
[2020-04-10] MEDS ORDERED: Dextrose 5% in Water 1,000 ML IV PRN (13:34)
[2020-04-10] MEDS ORDERED: Hydrocodone-Acetamin 15 ML UDCUP PO PRN (13:34)
[2020-04-10] MEDS ORDERED: Dextrose 50% Abboject 50 ML SYRINGE SLOW IVP PRN (13:34)
[2020-04-10] MEDS ORDERED: hydrALAZINE 20 MG/ML VIAL SLOW IVP PRN (13:34)
[2020-04-10] MEDS ORDERED: Ondansetron PF 4 MG/2 ML Vial IVP PRN (13:34)
[2020-04-10] MEDS ORDERED: Promethazine HCl 25 MG/ML VIAL ONE ×2 (13:49→16:22)
[2020-04-10] MEDS ORDERED: fentaNYL Citrate/PF 2,000 MCG in Sodium Chloride 0.9% 60 ML IV PRN (13:51)
[2020-04-10] MEDS ORDERED: diphenhydrAMINE 50 MG/ML VIAL IM PRN (13:51)
[2020-04-10] MEDS ORDERED: Naloxone HCl 0.4 mg/ml Vial IV PRN (13:51)
[2020-04-10] MEDS ORDERED: diphenhydrAMINE 25 MG CAP PO PRN (13:51)
[2020-04-10] MEDS ORDERED: Zolpidem Tartrate 5 MG TAB PO PRN (13:51)
[2020-04-10] MEDS ORDERED: Communication Order-Pharmacy FS SCH (14:00)
[2020-04-10] MEDS ORDERED: Fentanyl 100 MCG/2 ML VIAL ONE (14:28)
[2020-04-10] MEDS: Ondansetron PF 4 MG/2 ML Vial IVP PRN (19:13)
[2020-04-10] MEDS: D5 1/2 NS w/20 mEq KCL 1,000 ML IV SCH ×2 (20:01→20:02)
[2020-04-10] MEDS: Promethazine HCl 25 MG/ML VIAL IM PRN (20:42)
[2020-04-10] MEDS ORDERED: Enoxaparin Sodium 40 MG/0.4 ML SYRINGE SC SCH (21:00)
[2020-04-11] MEDS: D5 1/2 NS w/20 mEq KCL 1,000 ML IV SCH ×2 (00:36→11:57)
[2020-04-11] MEDS: Ondansetron PF 4 MG/2 ML Vial IVP PRN ×2 (02:57→12:01)
[2020-04-11 05:40] LABS: #Basophils 0.1 thou/uL (0.0-0.2); #Lymphocytes 1.4 thou/uL (1.20-3.40); #Monocytes 0.7 thou/uL (0.11-0.59); #Neutrophils 7.8 thou/uL (1.40-6.50); %Basophils 0.5 % (0.0-1.0); %Eosinophils 0.1 % (0.0-10.0); %Monocytes 7.3 % (0.0-10.0); %Neutrophils 78.1 % (42.0-75.0); Hemoglobin 12.9 g/dL (12.0-16.0); Mean Corpuscular HGB CONC 32.1 g/dL (32.0-36.0); Mean Corpuscular Volume 87.3 fL (78.0-98.0); Mean Platelet Volume 8.2 fL (7.4-10.4); Platelet Count 255 thou/uL (130-400); RBC Distribution Width 12.7 % (11.5-14.5); Red Blood Cell (RBC) Count 4.62 mill/uL (4.20-5.40)
[2020-04-11 05:57] LABS: Anion Gap 14 mmol/L (10-20); BUN (Urea Nitrogen) 7 mg/dL (7.0-18.7); Calc. Creatinine Clearance 139 mL/min (70-130); Carbon Dioxide 21 mmol/L (22-29); Chloride 105 mmol/L (98-107); Estimated GFR-MDRD 86; Glucose 97 mg/dL (70-105); Potassium 4.4 mmol/L (3.5-5.1); Sodium 136 mmol/L (136-145)
[2020-04-11] MEDS: Promethazine HCl 25 MG/ML VIAL IM PRN (07:47)
[2020-04-11] MEDS ORDERED: Venlafaxine HCl XR 150 MG CAP PO SCH (09:00)
[2020-04-11] MEDS ORDERED: Pantoprazole 40 MG VIAL IVP SCH (09:00)
[2020-04-11] MEDS ORDERED: Hydrocodone-Acetamin 15 ML UDCUP PO PRN (11:45)
[2020-04-11 12:12] VITALS: BP 156/57; TEMP 99
--- NOTE | 2020-04-11 22:49 | DIS ---
DATE OF ADMISSION: 04/10/2020 DATE OF DISCHARGE: 04/11/2020 ADMIT DIAGNOSIS: Morbid obesity. DISCHARGE DIAGNOSES: Morbid obesity. PROCEDURE PERFORMED: Laparoscopic sleeve by Dr. Ferreira without complication. CONDITION ON DISCHARGE: Improved. STAFF: Marquez Ferreira MD HOSPITAL COURSE: On postop day 1, the patient is doing well, tolerating the liquids. She is ambulatory. Pain is well controlled. She is discharged home. Outpatient prescriptions already sent to her pharmacy. She will follow up with me in 2 weeks. Job ID: [id number]
--- NOTE | 2020-04-14 14:10 | OP ---
DATE OF PROCEDURE: 04/10/2020 PREOPERATIVE DIAGNOSES: 1. Morbid obesity with a body mass index of 40. 2. Essential hypertension. POSTOPERATIVE DIAGNOSES: 1. Morbid obesity with a body mass index of 40. 2. Essential hypertension. PROCEDURE PERFORMED: Laparoscopic sleeve gastrectomy with Ethicon staple line reinforcements and 38-[place] bougie. ANESTHESIA: General. ESTIMATED BLOOD LOSS: Minimal. COMPLICATIONS: None. SPECIMEN: Stomach. FINDINGS: Normal postoperative EGD. DESCRIPTION OF PROCEDURE: The patient was taken to the operating room and laid supine on the operating room table. After general anesthetic was obtained, the arms and legs were double strapped to bariatric table. OG tube was used to decompress the stomach. The abdomen was prepped and draped in a sterile fashion. Left subcostal 5-mm Optiview trocar was placed in usual fashion, and high-flow pneumoperitoneum was obtained. The left and right abdominal 12 mm ports as well as a right subcostal 5-mm ports were all placed under direct visualization. The 5-mm incision was made at the xiphoid and Betsy was used to raise the liver off the GE junction. Short gastrics were taken down from midbody of stomach to left colton of diaphragm. Left colton, posterior fundus, and angle of His were completely dissected. Short gastrics were taken down to a distance of 6 cm proximal to the pylorus. The posterior fundus and angle of His were completely dissected, revealing no hiatal hernia. OG tube was removed, and a 38 bougie was brought in its tip left in the antrum of the stomach. Multiple loads of echelon stapling device was used to form the sleeve. The first was a green load, fired up at a distance of 6 cm proximal to the pylorus, angled up towards the incisura. Multiple loads were then fired up along the bougie. Stomach was completely transected at the angle of His. Stomach was removed from the left abdominal incision. This fascial defect was closed using GraNee needle and Vicryl tie. All port sites were infiltrated using local anesthetic. EGD scope was passed through esophagus and stomach to the level of duodenum without obstruction. There was no stricture at the incisura. There was no air leakage or bleeding along the staple line. EGD scope was used to decompress the stomach. It was pulled and removed. All ports were removed under camera visualization. The pneumoperitoneum was let down. Vicryl was used to close the fascial defect from the left abdominal incisions. All incisions were irrigated and closed using 4-0 Monocryl and Dermabond. The patient was sent to Recovery in stable condition. All instrument counts, needle counts, and lap counts were correct. Job ID: [id number]
== END 2020-04-11 12:35 | disposition home or self-care (01) | DRG 621 ==
LOC: SURG A 04-10 08:33 → SURG B 04-10 17:03
PROVIDERS: ADMIT Surgery; ATTEND Surgery
PROC: 0DB64Z3 Excision of Stomach, Percutaneous Endoscopic Approach, Vertical (ICD-10-PCS; principal; 2020-04-10)
DX: E66.01 Morbid (severe) obesity due to excess calories (principal); I10 Essential (primary) hypertension; Z20.828 Contact with and (suspected) exposure to other viral communicable diseases; K58.9 Irritable bowel syndrome, unspecified; E03.9 Hypothyroidism, unspecified; F41.9 Anxiety disorder, unspecified; F32.9 Major depressive disorder, single episode, unspecified; Z79.899 Other long term (current) drug therapy; Z88.8 Allergy status to other drugs, medicaments and biological substances; Z68.41 Body mass index [BMI] 40.0-44.9, adult; Z79.890 Hormone replacement therapy; Z01.818 Encounter for other preprocedural examination
CPT/HCPCS: 36415; 36416; 71046; 80048; 80053; 83036; 84703; 85025; 87635; 88307; 88312; 93005; 94760; C9113; J0360; J0690; J1100; J1644; J1650; J1885; J2250; J2405; J2550; J2704; J3010; J3480; S0020; U0003

== ENCOUNTER 2021-02-24 00:29 | Emergency (ER) | payer OTHER ==
[2021-02-24 01:55] LABS: HBSAB Concentration 38.38 mIU/mL; HIV (1/2) Antibody/Antigen Non-Reactive (NonReactive); HIV 1/2 INDEX 0.08 S/CO (<1.00); Hep B Surf AB Reactive (NonReactive); Hep C IgG Ab Non-Reactive (NonReactive); Hep C Index 0.07 S/CO (0-0.79)
== END 2021-02-24 02:25 | disposition home or self-care (01) ==
LOC: ERS 00:29
DX: Z77.21 Contact with and (suspected) exposure to potentially hazardous body fluids (principal)
CPT/HCPCS: 36415; 86706; 86803; 87389; 99283

== ENCOUNTER 2021-05-18 14:16 | Emergency (ER) | payer OTHER ==
[2021-05-18] MEDS ORDERED: Famotidine 20 MG TAB ONE (15:49)
[2021-05-18] MEDS ORDERED: diphenhydrAMINE 25 MG CAP ONE (15:49)
[2021-05-18] MEDS ORDERED: predniSONE 20 MG TAB ONE (15:49)
== END 2021-05-18 17:00 | disposition home or self-care (01) ==
LOC: ERS 14:16
DX: T78.40XA Allergy, unspecified, initial encounter (principal); I10 Essential (primary) hypertension; J45.909 Unspecified asthma, uncomplicated; K21.9 Gastro-esophageal reflux disease without esophagitis; L29.9 Pruritus, unspecified; R21 Rash and other nonspecific skin eruption
CPT/HCPCS: 36415; 80053; 83735; 85025; 85652; 99283; J7512

== ENCOUNTER 2022-01-05 10:30 | Outpatient (CLI) | payer BC | END 2022-01-05 10:31 | disposition home or self-care (01) | LOC: BICRAD 10:30 | DX: M25.50 Pain in unspecified joint (principal) ==

== ENCOUNTER 2022-04-27 08:18 | Emergency (ER) | payer BC ==
[2022-04-27] MEDS ORDERED: Ketorolac Tromethamine 30 MG/ML VIAL ONE (10:25)
== END 2022-04-27 11:08 | disposition home or self-care (01) ==
LOC: ERS 08:18
DX: M25.511 Pain in right shoulder (principal); M54.50 Low back pain, unspecified; I10 Essential (primary) hypertension; K21.9 Gastro-esophageal reflux disease without esophagitis; J45.909 Unspecified asthma, uncomplicated
CPT/HCPCS: 72100; 96372; J1885

== ENCOUNTER 2023-06-19 22:25 | Emergency (ER) | payer BC ==
[2023-06-19 23:28] LABS: HIV (1/2) Antibody/Antigen Non-Reactive (NonReactive); HIV 1/2 INDEX 0.15 S/CO (<1.00); Hep C IgG Ab Non-Reactive S/CO (NonReactive)
[2023-06-19 23:34] LABS: HBSAB Concentration 43.14 mIU/mL; Hep B Surf AB Reactive (NonReactive)
[2023-06-20 01:29] LABS: Hep C Index 0.06 S/CO (0-0.79)
== END 2023-06-19 22:58 | disposition home or self-care (01) ==
LOC: ERS 22:25
DX: Z77.21 Contact with and (suspected) exposure to potentially hazardous body fluids (principal); I10 Essential (primary) hypertension
CPT/HCPCS: 36415; 99283